=== PATIENT | male | born 1970 | race Caucasian/White ===

== ENCOUNTER → 2017-09-11 | Outpatient (CLI) | payer OTHER | LOC: CIMAGING 11:41 | PROVIDERS: ATTEND Physical Medicine & Rehabilitation | DX: M54.41 Lumbago with sciatica, right side (principal); M54.42 Lumbago with sciatica, left side | CPT/HCPCS: 72114-PO ==

== ENCOUNTER → 2017-10-11 | Outpatient (CLI) | payer OTHER | LOC: CIMAGING 14:41 | PROVIDERS: ATTEND Physical Medicine & Rehabilitation | DX: M54.5 Low back pain (principal) | CPT/HCPCS: 70200-PO ==

== ENCOUNTER 2018-09-17 15:38 | Emergency (ER) | payer OTHER ==
--- NOTE | 2018-09-17 16:27 | EDPHY ---
H & P Time Seen by Provider: 09/17/18 16:09 HPI/ROS: Chief complaint. Low back pain, left foot drop HPI. Patient is a 48-year-old male presents emergency department with 1 week of numbness and difficulty lifting his left foot. Patient sustained back injury July 2017 while lifting batteries. He has been undergoing physical therapy. Patient had an MRI October 2017 which showed mild broad-based annular bulge at L3-L4 with early DJD and mild bilateral neural foraminal narrowing. Patient had a nerve ablation to the low back May 2018 and then steroid injection of his left SI joint in July. 1 week ago he noted some numbness to the top of his left foot and now has difficulty lifting his left foot and raising his toes. He notes when he walks he has some flopping sensation to the left foot. He has spasms in his low back and some achy and numbness to his left hip which are not unusual for him. No bowel or bladder symptoms. No fever ROS 10 systems were reviewed and negative with the exception of the elements mentioned in the history of present illness Past Medical/Surgical History: L3-L4 bulging disc, shoulder surgery Social History: Single, nonsmoker, no alcohol Smoking Status: Former smoker Physical Exam: General Appearance: Alert pleasant well-developed male mild distress vital signs are stable Eyes: Pupils equal and round no pallor or injection. ENT, Mouth: Mucous membranes are moist. Respiratory: There are no retractions, lungs are clear to auscultation. Cardiovascular: Regular rate and rhythm. Gastrointestinal: Abdomen is soft and nontender, no masses, bowel sounds normal. Neurological: Straight leg raising negative at 30 degrees bilaterally. Deep tendon reflexes are decreased but symmetrical. Great toe strength is weak on the left foot but present. Plantar flexion is normal Skin: Warm and dry, no rashes. Musculoskeletal: Neck is supple nontender. Extremities symmetrical, full range of motion. Psychiatric: Patient is oriented X 3, there is no agitation. Constitutional: Initial Vital Signs Temperature (C) 37.1 C 09/17/18 15:48 Heart Rate 86 09/17/18 15:48 Respiratory Rate 18 09/17/18 15:48 Blood Pressure 148/97 H 09/17/18 15:48 O2 Sat (%) 95 09/17/18 15:48 O2 Delivery Mode Room Air Allergies/Adverse Reactions: NSAIDS (Non-Steroidal Anti-Inflamma Allergy (Verified 09/17/18 15:51) Penicillins Allergy (Verified 09/17/18 15:51) Home Medications: Medication Instructions Recorded Wellbutrin 100mg (*) 09/17/18 traMADol 09/17/18 Medical Decision Making - Diagnostics Imaging Results: MRI reviewed by me and discussed with Dr. Franco is similar but maybe slightly worse than his previous MRI in October 2017. It shows early DJD at L3-L4 with mild bilateral neural foraminal narrowing. Mild broad-based annular disc bulge at that level. No evidence for cauda equina syndrome ED Course/Re-evaluation: I consulted discussed the case with PA for Dr. Valenzuela of the [facility] and they will see him in the office in the next few days. I re-evaluated the patient at 6:40 p.m.. Patient and I discussed imaging results, treatment plan including criteria for return and importance of follow- up and further evaluation. He expresses understanding and agrees Differential Diagnosis: I considered cauda equina syndrome, large HNP. No significant MRI findings for difficulty dorsiflexing toes of left foot. Departure - Departure Disposition: Home, Routine, Self-Care Clinical Impression: Lower extremity weakness Qualifiers: Laterality: left Qualified Code(s): R29.898 - Other symptoms and signs involving the musculoskeletal system Condition: Good Instructions: Lumbar Radiculopathy (ED) Additional Instructions: Continue regular medication Return for worsening foot and leg weakness or bowel or bladder symptoms Follow-up with Neurosurgery this week. Call their office tomorrow morning [phone]. Referrals: NONE *PRIMARY CARE P,. [Primary Care Provider] - As per Instructions Raul Neal MD [Medical Doctor] - As per Instructions
[2018-09-17 18:27] VITALS: BP 130/100
== END 2018-09-17 18:55 | disposition home or self-care (01) ==
LOC: CED 15:38
DX: M51.16 Intervertebral disc disorders with radiculopathy, lumbar region (principal); M48.061 Spinal stenosis, lumbar region without neurogenic claudication; M46.96 Unspecified inflammatory spondylopathy, lumbar region; M21.372 Foot drop, left foot; Z87.891 Personal history of nicotine dependence
CPT/HCPCS: 99284-ER